=== PATIENT | female | born 1970 | race Caucasian/White ===

== ENCOUNTER 2016-10-26 15:19 | Emergency (ER) | payer MEDICARE, OTHER ==
--- NOTE | 2016-10-26 16:09 | ED Physician Chart ---
Chief Complaint/HPI - Patient Information Date Seen:: 10/26/16 Time Seen:: 15:12 Chief Complaint:: R flank pain for about 6 days. History of Present Illness:: Pt had acute onset of R flank pain about 6 days ago, characterized as sharp, intermittent and localized. No known precipitating, aggravating, or relieving factors. No fever. Transient nausea. No V/D. Last BM this morning, normal in color/consistency. No hematochezia or melena. No gross hematuria. No vaginal bleeding or discharge. Pt states that her pain has improved and does not need pain control at the present. Allergies:: Allergies Allergy/AdvReac Type Severity Reaction Status Date / Time Penicillins Allergy Verified 10/26/16 15:41 Vitals:: Vital Signs - 8 hr 10/26/16 15:43 Temp 98.4 F HR 92 RR 17 BP 149/76 O2 Sat % 100 Historian:: Patient Family MD/PCP:: Dr. Enriquez LMP:: 10/15/16. Review:: Nurse's Note Reviewed Review of Systems - Review of Systems General/Constitutional: No fever, No chills, No weight loss, No weakness, No diaphoresis, No edema, No loss of appetite Skin: No skin lesions, No rash, No bruising Head: No headache, No light-headedness Eyes: No loss of vision, No pain, No diplopia ENT: No earache, No nasal drainage, No sore throat, No tinnitus Neck: No neck pain, No swelling, No thyromegaly, No stiffness, No mass noted Cardio Vascular: No chest pain, No palpitations, No PND, No orthopnea, No edema Pulmonary: No SOB, No cough, No wheezing GI: Nausea (transient), No vomiting, No diarrhea, Pain (R flank pain.), No melena, No hematochezia, No constipation G/U: No dysuria, No frequency, No hematuria Psychiatric Assistant: No vaginal discharge, No abnormal vaginal bleed Musculoskeletal: No bone or joint pain, No back pain, No muscle pain Endocrine: No polyuria, No polydipsia Psychiatric: No prior psych history Hematopoietic: No bruising, No lymphadenopathy Allergic/Immuno: No urticaria, No angioedema Neurological: No syncope, No focal symptoms, No weakness, No paresthesia, No headache, No dizziness, No confusion Past Medical History - Past Medical History Past Medical History: DM Family History: Heart disease (mother), Diabetes Melitus (father), HTN (mother) Social History: Non Smoker, No Alcohol, No Drug Use, , Employed, Other ( lives with her .) Surgical History: ('04), Hernia (inguinal hernia repair '), other ( Neck surgery '07) Psychiatricy History: None Medication: Reviewed Family Medical History - Family Member Mother History Unknown: Yes Physical Exam - Physical Examination General/Constitutional: Awake, Well-developed, well-nourished, Alert, No distress, GCS 15, Non-toxic appearing, Ambulatory Other Gen/Cons comments:: Breathes comfortably, speaks clearly, ambulates without difficulty, and interacts normally. Head: Atraumatic Eyes: Lids, conjuctiva normal, PERRL, EOMI Skin: Nl inspection, No rash, No skin lesions, No ecchymosis, Well hydrated, No lymphadenopathy ENMT: External ears, nose nl, Nasal exam nl, Oropharynx nl Neck: Nontender, Full ROM w/o pain, No nuchal rigidity, No mass, No stridor Other Neck comments:: A well healed approx 2.5 cm transverse surgical scar noticed at L anterolateral aspect of neck. Respiratory: Nl effort/Exclusion, Clear to Auscultation, No Wheeze/Rhonchi/Rales Cardio Vascular: RRR, No murmur, gallop, rubs GI: No organomegaly, No hernia, Normal BS's, Nondistended, No mass/bruits, No McBurney tenderness Other GI comments:: Abdomen is obese but soft. Tenderness at R flank posterolateral aspect. No erythema, swelling, or any skin lesions. No R/G. : No CVA tenderness Extremities: No tenderness or effusion, Full ROM, normal strength in all extremities, No edema, Normal digits & nails Neuro/Psych: Alert/oriented (oriented x 3), Judgement/insight normal, Mood normal, Normal gait, No focal deficits Misc: normal gait, Normal back, No paraspinal tenderness Labs/Radiology/EKG Results - Lab Results Results: Laboratory Tests 10/26/16 10/26/16 10/26/16 16:22 16:22 16:22 WBC 10.0 RBC 4.99 Hgb 12.1 Hct 37.2 MCV 74.6 L MCH 24.2 L MCHC Differential 32.5 RDW 15.7 Plt Count 220 MPV 8.4 Neutrophils % 62.5 Lymphocytes % 31.6 Monocytes % 3.3 Eosinophils % 2.1 Basophils % 0.5 PT 9.9 INR 0.95 PTT (Actin FS) 21.9 L Sodium 132 L Potassium 3.7 Chloride 101 Carbon Dioxide 26.6 Anion Gap 8.1 BUN 11 Creatinine 0.6 Est GFR ( Amer) > 60.0 Est GFR (Non-Af Amer) > 60.0 BUN/Creatinine Ratio 18.3 Glucose 213 H Hemoglobin A1c % Calcium 9.1 Total Bilirubin 1.2 H AST 20 ALT 19 Alkaline Phosphatase 79 Total Protein 6.6 Albumin 3.7 Globulin 2.9 Albumin/Globulin Ratio 1.3 Urine Source Urine Color Urine Clarity Urine pH Ur Specific [place] Urine Protein Urine Glucose (UA) Urine Ketones Urine Blood Urine Nitrate Urine Bilirubin Urine Urobilinogen Ur Leukocyte Esterase Urine RBC Urine WBC Ur Epithelial Cells Urine Bacteria Urine Test POC Ur Test 10/26/16 10/26/16 10/26/16 16:22 16:30 16:30 WBC RBC Hgb Hct MCV MCH MCHC Differential RDW Plt Count MPV Neutrophils % Lymphocytes % Monocytes % Eosinophils % Basophils % PT INR PTT (Actin FS) Sodium Potassium Chloride Carbon Dioxide Anion Gap BUN Creatinine Est GFR ( Amer) Est GFR (Non-Af Amer) BUN/Creatinine Ratio Glucose Hemoglobin A1c % 10.0 H Calcium Total Bilirubin AST ALT Alkaline Phosphatase Total Protein Albumin Globulin Albumin/Globulin Ratio Urine Source CLEAN C Urine Color YELLOW Urine Clarity CLEAR Urine pH 5.5 Ur Specific [place] 1.025 Urine Protein NEGATIVE Urine Glucose (UA) NEGATIVE Urine Ketones NEGATIVE Urine Blood NEGATIVE Urine Nitrate NEGATIVE Urine Bilirubin NEGATIVE Urine Urobilinogen 0.2 Ur Leukocyte Esterase NEGATIVE Urine RBC 0-1 Urine WBC 0-2 Ur Epithelial Cells OCCASIONAL Urine Bacteria FEW Urine Test NEGATIVE POC Ur Test 10/26/16 16:33 WBC RBC Hgb Hct MCV MCH MCHC Differential RDW Plt Count MPV Neutrophils % Lymphocytes % Monocytes % Eosinophils % Basophils % PT INR PTT (Actin FS) Sodium Potassium Chloride Carbon Dioxide Anion Gap BUN Creatinine Est GFR ( Amer) Est GFR (Non-Af Amer) BUN/Creatinine Ratio Glucose Hemoglobin A1c % Calcium Total Bilirubin AST ALT Alkaline Phosphatase Total Protein Albumin Globulin Albumin/Globulin Ratio Urine Source Urine Color Urine Clarity Urine pH Ur Specific [place] Urine Protein Urine Glucose (UA) Urine Ketones Urine Blood Urine Nitrate Urine Bilirubin Urine Urobilinogen Ur Leukocyte Esterase Urine RBC Urine WBC Ur Epithelial Cells Urine Bacteria Urine Test POC Ur Test Negative - Radiology Results Results: CT of abdomen and pelvis without contrast: No hydro. No renal stones. Englarged globular fibroid uterus. 1.5 cm left adnexal cystic lesion. Fatty liver. ?tiny gallstone, consider f/u ultrasound. Borderline prominent spleen. Calcified meseneric lymph nodes, likely due to old inflammatory process. Official report per Dr. Walter Crandall, radiologist. ED Septic Shock - . Is Septic Shock (SBP<90, OR Lactate>4 mmol\L) present?: No - <6hrs of presentation: Vital Signs: Vital Signs - 8 hr 10/26/16 15:43 Temp 98.4 F HR 92 RR 17 BP 149/76 O2 Sat % 100 Reassessment (Disposition) - Reassessment Reassessment:: 1805 Pt feels much better and her pain has subsided. CT report just became available. CT and lab findings have been reviewed with pt. Pt requests to leave now and does not want further observation/management in hospital. Aftercare instructions have been given. Copies of CT report and lab studies have been given to pt to bring to PCP for further follow-up. Reassessment Condition:: Improved - Diagnosis Diagnosis:: R flank pain of unknown etiology, consider spontaneous passage of renal stone vs muscle strain. Stable and improved. - Aftercare/Follow up Instructions Aftercare/Follow-Up Instructions:: Refer to Discharge Instructions Notes:: Best rest for today. Continue to strain all urines. If renal stone is isolated, save and bring to PCP for chemical analysis. Abdominal pain instructions have been given. F/U with PCP Dr. Enriquez in one day for recheck with repeat lab studies: CBC , CMP. Return to ER immediately if condition worsens or if any further questions /problems. Medication Prescribed:: None - Patient Disposition Discharge/Transfer:: Home Time:: 18:10 Condition at Disposition:: Stable, Improved
[2016-10-26 16:30] LABS: % BASOPHILS 0.5 % (0.0-2.0); % EOSINOPHILS 2.1 % (0.0-5.0); % LYMPHOCYTES 31.6 % (20.0-50.0); % MONOCYTES 3.3 % (2.0-10.0); % NEUTROPHILS 62.5 % (40.0-80.0); HEMATOCRIT 37.2 % (35.0-45.0); HEMOGLOBIN 12.1 gm/dL (11.7-15.5); MEAN CELL VOLUME 74.6 fl (81-100); MEAN CORPUSCULAR HEMOGLOBIN 24.2 pg (27.0-31.0); MEAN CORPUSCULAR HGB CONC 32.5 pg (28.0-36.0); MEAN PLATELET VOLUME 8.4 fl; NEUTROPHILE ABSOLUTE 6.3 Th/cmm (1.8-8.0); PLATELET COUNT 220 Th/cmm (150-400); RED BLOOD COUNT 4.99 Mil/cmm (3.80-5.10); RED CELL DISTRIBUTION WIDTH 15.7 % (11.5-20.0)
[2016-10-26 16:42] LABS: INR 0.95 (0.5-1.4); PROTHROMBIN TIME (TEST) 9.9 SECONDS (9.5-11.5)
[2016-10-26 16:44] LABS: ALB/GLOB RATIO 1.3 (1.0-1.8); ALKALINE PHOSPHATASE 79 U/L (34-104); ANION GAP 8.1 (7.0-16.0); BILIRUBIN,TOTAL 1.2 mg/dL (0.3-1.0); BUN - UREA NITROGEN 11 mg/dL (7-25); BUN/CREATININE RATIO 18.3; CALCIUM SERUM 9.1 mg/dL (8.6-10.3); CARBON DIOXIDE 26.6 mEq/L (21.0-31.0); CHLORIDE 101 mEq/L (98-107); CREATININE - SERUM 0.6 mg/dL (0.6-1.2); GLUCOSE 213 mg/dL (70-105); POTASSIUM SERUM 3.7 mEq/L (3.5-5.1); SGOT 20 U/L (13-39); SGPT/ALT 19 U/L (7-52); SODIUM SERUM 132 mEq/L (136-145)
[2016-10-26 16:47] LABS: URINE BILIRUBIN NEGATIVE (NEGATIVE); URINE BLOOD NEGATIVE (NEGATIVE); URINE COLOR YELLOW; URINE GLUCOSE (UA) NEGATIVE (NEGATIVE); URINE KETONE NEGATIVE (NEGATIVE); URINE PH 5.5; URINE PROTEIN NEGATIVE (NEGATIVE); URINE RBC 0-1 /hpf (0-5); URINE UROBILINOGEN 0.2 E.U./dL (0.2 - 1.0); URINE WBC 0-2 /hpf (0-5)
[2016-10-26 16:48] LABS: URINE BACTERIA FEW /hpf (NONE SEEN); URINE EPITHELIAL CELLS OCCASIONAL /lpf (FEW)
--- NOTE | 2016-10-27 11:58 | Diagnostic Imaging Report ---
CT scan abdomen and pelvis without intravenous contrast HISTORY: Pain Total DLP equals 804 CTDI equals 15.3 Axial sections were obtained from the xiphoid process down to the pubic symphysis. The liver appears somewhat enlarged. There is a decrease in parenchymal density consistent with fatty infiltration. The findings should be correlated with liver function tests. No focal lesions. The spleen is also generous in size. No focal amenities seen in the region of the pancreas. The adrenal glands appear normal. No significant focal renal lesions. The exam of the pelvis demonstrates an enlarged bulbous shaped uterus with a somewhat irregular contour. Small calcifications noted consistent with fibroid changes. There is an approximate 1.5 cm hypodensity in the left adnexal region most likely related to an ovarian cyst. No other abnormal masses. No abnormal fluid collections. IMPRESSION: 1. No definite acute abnormalities 2. Questionable cholelithiasis. Sonography would provide additional assessment. 3. Hepatosplenomegaly along with findings consistent with hepatic fatty infiltration. The changes should be correlated with liver function tests. 4. Enlarged uterus with evidence of fibroid changes.
== END 2016-10-26 18:18 | disposition home or self-care (01) ==
LOC: ER 15:19 → EEVIPCON 15:19 → ER 18:18
DX: R10.9 Unspecified abdominal pain (principal); Z88.0 Allergy status to penicillin; E11.9 Type 2 diabetes mellitus without complications
CPT/HCPCS: 36415-UA; 80053-TC; 81001-TC; 81025-TC; 83036-90; 85025-TC; 85610-TC